=== PATIENT | female | born 2000 | race Caucasian/White ===

== ENCOUNTER 2019-08-18 11:41 | Emergency (ER) | payer OTHER ==
[2019-08-18 12:22] LABS: ABS Lymphocytes 0.8 10^3/ul (1.0-4.8); ABS Monocytes 0.7 10^3/ul (0-0.8); ABS Neutrophils 10.5 10^3/ul (1.5-7.7); Eosinophil % 0.2 %; Hematocrit 42 % (35-47); Hemoglobin 14.2 g/dL (12.0-16.0); Mean Corpuscular HGB Conc 34 g/dL (31-36); Mean Corpuscular Hemoglobin 31 pg (27-31); Mean Corpuscular Volume 92 fL (80-97); Mean Platelet Volume 8.7 fL (7.4-10.4); Platelet Count 243 10^3/uL (150-450); Red Blood Count 4.62 10^6 /uL (3.70-4.87); Red Cell Distribution Width 13 % (10-15)
[2019-08-18 12:54] LABS: Albumin 4.2 g/dL (3.2-5.2); Albumin/Globulin Ratio 1.6 (1-3); BUN/Creatinine Ratio 17.5 (8-20); EGFR African American 110.7 (>60); EGFR Non-African American 91.4 (>60); Globulin 2.6 g/dL (2-4); Total Bilirubin 0.8 mg/dL (0.2-1.0); Total Protein 6.8 g/dL (6.4-8.9)
--- NOTE | 2019-08-18 15:35 | ED ---
GI/ HPI - HPI Summary HPI Summary: Patient is a 19 y/o F presenting to the ED for a chief complaint of UTI symptoms for the last week. Patient states that she initially had urinary urgency, urinary frequency, and urinary burning. She took cranberry supplements at that time without relief. On 08/17/19, patient reports having a fever for which she took Advil without relief. She had an appointment to be seen at [facility] on 08/18/19, but was told to be seen at [facility] instead. Currently, patient complains of lower back pain, neck pain, nausea, vomiting, and lower abdominal pain. PMHx is significant for diabetes mellitus type 1 and fibromyalgia. Last glucose was 274. Any significant PSHx is denied. FMHx is significant for hypertension. LNMP was 3 days ago. Patient admits marijuana use , but denies alcohol or tobacco use. Allergies reviewed. - History of Current Complaint Chief Complaint: EDUrogenitalProblems Stated Complaint: LOWER ABDOMINAL AND BACK PAIN PER PT Hx Obtained From: Patient Hx Last Menstrual Period: 08/15/19 Onset/Duration: Atraumatic, Still Present Timing: Constant Severity: Moderate Current Severity: Moderate Pain Intensity: 8 Location of Pain: Other - Lower abdomen Associated Signs and Symptoms: Positive: Back Pain - Lower, Nausea, Vomiting, Fever - In vitals, 100.6 F, Abdominal Pain - Lower, UTI Symptoms - Urinary burning, urgency, and frequency - Allergy/Home Medications Allergies/Adverse Reactions: Allergies Allergy/AdvReac Type Severity Reaction Status Date / Time mint Allergy Unknown Verified 08/18/19 11:46 Reaction Details Home Medications: Home Medications Ibuprofen TAB* [Advil TAB*] 200 - 400 mg PO Q6H PRN 08/18/19 [History Confirmed 08/18/19] PMH/Surg Hx/FS Hx/Imm Hx Previously Healthy: Yes Endocrine/Hematology History: Reports: Hx Diabetes - Type I Musculoskeletal History: Reports: Hx Fibromyalgia Sensory History: Denies: Hx Legally Blind, Hx Deafness Opthamlomology History: Denies: Hx Legally Blind EENT History: Denies: Hx Deafness - Surgical History Surgical History: None Surgery Procedure, Year, and Place: None Infectious Disease History: No Infectious Disease History: Denies: Traveled Outside the [place] in Last 30 Days - Family History Known Family History: Positive: Hypertension - Social History Occupation: Student Alcohol Use: None Hx Substance Use: Yes Substance Use Type: Reports: Marijuana Hx Tobacco Use: No Smoking Status (MU): Never Smoked Tobacco Review of Systems Positive: Fever - In vitals, 100.6 F Positive: Abdominal Pain - Lower, Vomiting, Nausea Positive: burning - Urinary, frequency - Urinary, urgency - Urinary Positive: Myalgia - Neck and lower back All Other Systems Reviewed And Are Negative: Yes Physical Exam - Summary Physical Exam Summary: VITAL SIGNS: Reviewed. GENERAL: Patient is a well-developed and nourished female who is lying comfortable in the stretcher. Patient is not in any acute respiratory distress. HEAD AND FACE: No signs of trauma. No ecchymosis, hematomas or skull depressions. No sinus tenderness. EYES: PERRLA, EOMI x 2, No injected conjunctiva, no nystagmus. EARS: Hearing grossly intact. Ear canals and tympanic membranes are within normal limits. MOUTH: Oropharynx within normal limits. NECK: Supple, trachea is midline, no adenopathy, no JVD, no carotid bruit, no c- spine tenderness, neck with full ROM. CHEST: Symmetric, no tenderness at palpation. LUNGS: Clear to auscultation bilaterally. No wheezing or crackles. CVS: Regular rate and rhythm, S1 and S2 present, no murmurs or gallops appreciated. ABDOMEN: Soft, non-tender. No signs of distention. No rebound, no guarding, and no masses palpated. Bowel sounds are normal. EXTREMITIES: FROM in all major joints, no edema, no cyanosis or clubbing. NEURO: Alert and oriented x 3. No acute neurological deficits. Speech is normal and follows commands. SKIN: Dry and warm. Triage Information Reviewed: Yes Vital Signs On Initial Exam: Initial Vitals Temp Pulse Resp BP Pulse Ox 100.6 F 139 19 132/83 97 08/18/19 11:43 08/18/19 11:43 08/18/19 11:43 08/18/19 11:43 08/18/19 11:43 Vital Signs Reviewed: Yes Procedures - Sedation Patient Received Moderate/Deep Sedation with Procedure: No Diagnostics - Vital Signs Vital Signs Temp Pulse Resp BP Pulse Ox 08/18/19 13:33 99.8 F 114 19 130/66 97 08/18/19 11:43 100.6 F 139 19 132/83 97 - Laboratory Lab Results: Lab Results 08/18/19 08/18/19 Range/Units 12:09 12:09 WBC 12.0 H (3.5-10.8) 10^3/uL RBC 4.62 (3.70-4.87) 10^6 /uL Hgb 14.2 (12.0-16.0) g/dL Hct 42 (35-47) % MCV 92 (80-97) fL MCH 31 (27-31) pg MCHC 34 (31-36) g/dL RDW 13 (10-15) % Plt Count 243 (150-450) 10^3/uL MPV 8.7 (7.4-10.4) fL Neut % (Auto) 86.9 % Lymph % (Auto) 7.0 % [place] % (Auto) 5.7 % Eos % (Auto) 0.2 % Baso % (Auto) 0.2 % Absolute Neuts (auto) 10.5 H (1.5-7.7) 10^3/ul Absolute Lymphs (auto) 0.8 L (1.0-4.8) 10^3/ul Absolute Monos (auto) 0.7 (0-0.8) 10^3/ul Absolute Eos (auto) 0.0 (0-0.6) 10^3/ul Absolute Basos (auto) 0.0 (0-0.2) 10^3/ul Absolute Nucleated RBC 0.0 10^3/ul Nucleated RBC % 0.0 Sodium 134 L (135-145) mmol/L Potassium 4.0 (3.5-5.0) mmol/L Chloride 101 (101-111) mmol/L Carbon Dioxide 24 (22-32) mmol/L Anion Gap 9 (2-11) mmol/L BUN 14 (6-24) mg/dL Creatinine 0.80 (0.51-0.95) mg/dL Est GFR ( Amer) 110.7 (>60) Est GFR (Non-Af Amer) 91.4 (>60) BUN/Creatinine Ratio 17.5 (8-20) Glucose 325 H (70-100) mg/dL Calcium 9.0 (8.6-10.3) mg/dL Total Bilirubin 0.80 (0.2-1.0) mg/dL AST 13 (13-39) U/L ALT 11 (7-52) U/L Alkaline Phosphatase 78 (34-104) U/L Total Protein 6.8 (6.4-8.9) g/dL Albumin 4.2 (3.2-5.2) g/dL Globulin 2.6 (2-4) g/dL Albumin/Globulin Ratio 1.6 (1-3) Result Diagrams: 08/18/19 12:09 08/18/19 12:09 Lab Statement: Any lab studies that have been ordered have been reviewed, and results considered in the medical decision making process. GIGU Course/Dx - Course Assessment/Plan: Patient is a 19 y/o F presenting to the ED for a chief complaint of UTI symptoms for the last week. Patient states that she initially had urinary urgency, urinary frequency, and urinary burning. She took cranberry supplements at that time without relief. On 08/17/19, patient reports having a fever for which she took Advil without relief. She had an appointment to be seen at [facility] on 08/18/19, but was told to be seen at [facility] instead. Currently, patient complains of lower back pain, neck pain, nausea, vomiting, and lower abdominal pain. PMHx is significant for diabetes mellitus type 1 and fibromyalgia. Last glucose was 274. Any significant PSHx is denied. FMHx is significant for hypertension. LNMP was 3 days ago. Patient admits marijuana use, but denies alcohol or tobacco use. Allergies reviewed. In the ED course the patient was placed on a hand pleater, IV access was obtained, and IV fluids started. She was given Rocephin for the UTI. Blood tests are w/o any significant abnormality except for WBCs of 12, sodium 134, glucose 325, urinalysis positive for UTI. Since the patient has hyperglycemia the patient was given 4 units of insulin. After medications and hydration, the patient is feeling better. Patients symptoms have subsided. Therefore, the patient will be discharged home to follow-up with her primary care physician. I discussed all the findings and test results with the patient. Patient was instructed to return to the emergency room immediately if any of the symptoms return or worsen. Plan of care was discussed with the patient who understands and agrees. All questions were answered at the patient's satisfaction. There were no further complaints or concerns. Lung exam before discharge: CTA B/L. Good air exchange. No wheezing or crackles heard. CVS: S1 and S2 present. No murmurs appreciated. Patient is alert and oriented x 3. Patient is hemodynamically stable. Patient will be discharged home to follow up with her PCP in the next 2- 3 days. - Diagnoses Provider Diagnoses: UTI (urinary tract infection) Discharge ED - Sign-Out/Discharge Documenting (check all that apply): Patient Departure - Discharge - Discharge Plan Condition: Stable Disposition: HOME Prescriptions: Ondansetron ODT TAB* [Zofran 4 MG Odt TAB*] 4 mg PO Q8H PRN #10 tab.odt PRN Reason: Vomiting Sulfamethox/Trimethoprim DS* [Bactrim DS 800/160 TAB*] 1 tab PO BID #14 tab Patient Education Materials: Urinary Tract Infection in Women (ED) Referrals: [facility] @ [Outside] Additional Instructions: FOLLOW UP WITH YOUR PRIMARY CARE PROVIDER WITHIN THREE DAYS. RETURN TO THE EMERGENCY DEPARTMENT FOR ANY WORSENING OR NEW SYMPTOMS. - Billing Disposition and Condition Condition: STABLE Disposition: Home - Attestation Statements Document Initiated by Scribe: Yes Documenting Scribe: Apple Blunt Provider For Whom Scribe is Documenting (Include Credential): Mariano Jaime MD Scribe Attestation: Apple Serrato scribed for Mariano Jaime MD on 08/18/19 at 2143. Scribe Documentation Reviewed: Yes Provider Attestation: The documentation as recorded by the Apple garcia accurately reflects the service I personally performed and the decisions made by , Mariano Jaime MD Status of Scribe Document: Viewed
[2019-08-18] MEDS ORDERED: NS 0.9% 1000 ML** 1,000 ML IV ONE (15:37)
[2019-08-18] MEDS ORDERED: Ondansetron INJ* 2 MG/ML VIAL IV ONE (15:37)
[2019-08-18] MEDS ORDERED: cefTRIAXone(*) 1 GM in NS 0.9% 50 ML* 50 ML IVPB ONE (15:37)
[2019-08-18 16:26] LABS: Urine Appearance Turbid; Urine Bilirubin Negative (Negative); Urine Blood 2+ (Negative); Urine Color Yellow; Urine Glucose 3+(>=500 mg/dL) (Negative); Urine Ketones 1+ (Negative); Urine Nitrite Positive (Negative); Urine Protein 1+(30 mg/dL) (Negative); Urine Urobilinogen Negative (Negative)
[2019-08-18 16:28] LABS: Urine Bacteria Absent (Absent); Urine Red Blood Cell 2+(6-10/hpf) (Absent); Urine Squamous Epithelial Cell Present (Absent); Urine White Blood Cell 3+(>20/hpf) (Absent)
[2019-08-18] MEDS ORDERED: Insulin REGULAR(*) 1 UNITS UNIT IV PUSH ONE (16:47)
[2019-08-18 17:43] VITALS: BP 105/66
[2019-08-18 18:25] LABS: HIV 4th Generation Nonreactive (Nonreactive)
--- NOTE | 2019-08-21 12:48 | ED ---
Imaging and Labs Follow Up Follow Up Type: Labs/Cultures Labs/Culture Result: Urine culture growing e. coli. Patient Communication/Plan: Pt. treated with bactrim which is susceptible per culture. No change in treatment needed. Provider Diagnoses: UTI (urinary tract infection)
== END 2019-08-18 17:42 | disposition home or self-care (01) ==
LOC: ED 11:41
DX: N39.0 Urinary tract infection, site not specified (principal); E10.9 Type 1 diabetes mellitus without complications; M79.7 Fibromyalgia
CPT/HCPCS: 36415; 80053; 81003; 81015; 85025; 87077; 87086; 87186; 87389; 96365; 96375; 99282; J0696; J2405